=== PATIENT | female | born 1950 | race Caucasian/White ===

== ENCOUNTER 2017-02-26 14:34 | Emergency (ER) | payer OTHER, MEDICARE, SELFPAY | END 2017-02-26 16:41 | disposition home or self-care (01) | PROVIDERS: Emergency Provider Emergency Medicine; Visit Provider Emergency Medicine | DX: R21 Rash and other nonspecific skin eruption (principal); F17.210 Nicotine dependence, cigarettes, uncomplicated; Z88.5 Allergy status to narcotic agent | CPT/HCPCS: 96372; 99282 ==

== ENCOUNTER 2021-09-05 08:53 | Inpatient (IN) | payer MEDICARE, OTHER, SELFPAY ==
[2021-09-05] VITALS (40 sets, daily range): BP systolic 94–145; BP diastolic 44–76; PULSE 79–98; RESP 14–22; TEMP 35.6–37.1; O2SAT 95–100; BMI 24.7; BMI 27.3
--- NOTE | 2021-09-05 09:09 | XR_ITS ---
PROCEDURE INFORMATION: Exam: XR Chest Exam date and time: 09/05/2021 9:18 AM Age: 71 years old Clinical indication: Shortness of breath TECHNIQUE: Imaging protocol: Radiologic exam of the chest. Views: 1 view. COMPARISON: No relevant prior studies available. FINDINGS: Lungs: Unremarkable. No consolidation. Pleural spaces: No pneumothorax. Heart/Mediastinum: Unremarkable. No cardiomegaly. Bones/joints: Surgical screw, left scapula/glenoid. Other findings: The patient is rotated to the right. IMPRESSION: No acute process.
--- NOTE | 2021-09-05 09:09 | HMH.EDSOB ---
ED Disposition Clinical Impression: Anemia Qualifiers: Anemia type: unspecified type Qualified Code(s): D64.9 - Anemia, unspecified Disposition: Admitted as Observation Condition on Discharge: Serious - Critical Care Critical Care Time: Yes Attestation: On , the high probability of a clinically significant, sudden or life threatening deterioration of the following system(s) required my full and direct attention, intervention and personal management. The time I documented below is in addition to time spent performing reported procedures but includes the following listed in this critical care notation. Total Critical Care Time: 35 (Severe Anemia requiring blood transfusion) Vital system(s) involved:: Circulatory Failure My critical care processes included: Assessment & monitoring of V/S, Data Review/Interpretation, Medication Orders and management, Documentation Medical Decision Making - Medical Records Medical records reviewed: Yes: I reviewed the patient's medical records. - Alex Inquiry Pt receiving controlled substance: No Vital Signs: 09/05/21 09:11 09/05/21 09:56 Temperature 97.6 F Temperature Source Oral Pulse Rate 89 Pulse Rate [Left Radial] 93 H Respiratory Rate 16 22 Blood Pressure 116/57 L Blood Pressure [Right Arm] 116/51 L Blood Pressure Mean [Right Arm] 72 02 Sat by Pulse Oximetry 100 100 Oxygen Delivery Method Room Air - Lab Data Lab results reviewed: Yes: I reviewed the patient's lab results. Lab Results 09/05/21 09:15: WBC 8.3, RBC 4.15 L, Hgb 5.8 L*, Hct 22.4 L, MCV 53.9 L, MCH 13.9 L*, MCHC 25.7 L, RDW 20.7 H, Plt Count 739 H, MPV 7.6, Neut % (Auto) 73.8, Lymph % (Auto) 18.9, [place] % (Auto) 4.8, Eos % (Auto) 1.3, Baso % (Auto) 1.2, Neut # (Auto) 6.1, Lymph # (Auto) 1.6, [place] # (Auto) 0.4, Eos # (Auto) 0.1, Baso # (Auto) 0.1 09/05/21 09:15: Sodium 138, Potassium 3.2 L, Chloride 112 H, Carbon Dioxide 11 L, Anion Gap 18.2 H, BUN 16, Creatinine 0.90, Estimated Creat Clear 60, Estimated GFR 62, Est GFR ( Amer) 75, Glucose 135 H, Calcium 8.8, Total Bilirubin 0.4, AST 36, ALT 16, Alkaline Phosphatase 116, Total Protein 7.6, Albumin 3.9, Globulin 3.7 H, Albumin/Globulin Ratio 1.1 09/05/21 09:15: Lactate 1.1 09/05/21 09:15: Troponin I < 0.01, NT-Pro-B Natriuret Pep 852 H 09/05/21 09:15: Retic Count (auto) 2.6 09/05/21 09:15: PT 16.8 H, INR 1.53 H, APTT 35.1 H 09/05/21 09:18: SARS-CoV-2 (PCR) Not detected, Influenza A Untype (PCR) Not detected, Influenza Type B (PCR) Not detected 09/05/21 09:21: Specimen Source Right radial, O2 % ra, ABG pH 7.54 H, ABG pCO2 16.5 L, ABG pO2 115.7 H, ABG HCO3 13.9 L, ABG Total CO2 14.4 L, ABG O2 Saturation 99, ABG Base Excess -8.6 L, Ham[place] Test Acceptable 09/05/21 09:50: Stool Occult Blood Negative 09/05/21 09:54: Crossmatch ([facility]) See Detail Result diagrams: 09/05/21 09:15 09/05/21 09:15 Orders (Tests/Meds): ED MEDICATIONS Generic Name Dose Route Start Last Admin Trade Name Freq PRN Reason Stop Dose Admin Sodium Chloride 250 mls @ 25 mls/hr 09/05/21 10:15 Sod Chlor 0.9% 250ml Bag IV 09/06/21 10:14 .Q10H ANGEL LUIS Sodium Chloride 10 ml 09/05/21 09:20 Sodium Chloride 0.9% 10ml Flush Syringe IV 10/05/21 09:19 NEEDED PRN Maintain IV Site Sodium Chloride 10 ml 09/05/21 09:37 Sodium Chloride 0.9% 10ml Vial IV 10/05/21 09:36 NEEDED PRN to Dilute Lorazepam inj Discontinued Medications Generic Name Dose Route Start Last Admin Trade Name Freq PRN Reason Stop Dose Admin Lorazepam 1 mg 09/05/21 09:37 09/05/21 09:42 Lorazepam 2mg/Ml Vial IV 09/05/21 09:38 1 mg ONCE ONE Administration ORDERS Category Date Time Status Red Blood Cells Stat BBK 09/05/21 09:54 Received Type and Screen Stat BBK 09/05/21 09:54 Received Ferritin Stat Lab 09/05/21 09:15 Received Folate Stat Lab 09/05/21 09:15 Received Iron Stat Lab 09/05/21 09:15 Received Total Iron Binding Capacity Stat Lab 09/05/21
--- NOTE | 2021-09-05 09:10 | PC.NURSE ---
at the bedside
--- NOTE | 2021-09-05 09:12 | ECG_ITS ---
APPROVED REPORT Exam: Resting ECG HR:90 bpm ECG Measurements Heart Rate 90 AXES OH 153 P 50 QRSd 113 QRS 5 QT 383 T 83 QTc 430 Conclusion SINUS RHYTHM POSSIBLE LEFT ATRIAL ENLARGEMENT [-0.1mV P-WAVE IN V1/V2] ANTEROSEPTAL MYOCARDIAL INFARCTION , OF INDETERMINATE AGE [40+ ms Q WAVE IN V1-V4] ABNORMAL ECG UNCONFIRMED REPORT Electronically signed by : Rodney Randall MD 09/06/2021 21:47:11
--- NOTE | 2021-09-05 09:18 | PC.NURSE ---
called RT for abg collection
--- NOTE | 2021-09-05 09:18 | PC.NURSE ---
staff at the bedside for blood collection
--- NOTE | 2021-09-05 09:18 | PC.NURSE ---
at the bedside
[2021-09-05 09:21] LABS: Coronavirus 19, PCR Not Detected (NotDetected); Influenza A, PCR Not Detected (NotDetected); Influenza B, PCR Not Detected (NotDetected)
--- NOTE | 2021-09-05 09:21 | PC.NURSE ---
radiology at the bedside for portable xr
--- NOTE | 2021-09-05 09:21 | PC.NURSE ---
RT at the bedside for abg collection
[2021-09-05 09:31] LABS: ABG Base Excess -8.6 mmol/L (-2.4-2.3); ABG HCO3 13.9 mmhg (22.0-26.0); ABG Oxygen Saturation 99 % (90-100); ABG PH 7.54 mmol/L (7.35-7.45); ABG PO2 115.7 mmhg (80-100); ABG TCO2 14.4 mmhg (23-27)
[2021-09-05 09:34] LABS: Allen's Test Acceptable; Oxygen ra %; Source Right Radial
[2021-09-05 09:35] LABS: ABG PCO2 16.5 mmhg (35.0-45.0)
--- NOTE | 2021-09-05 09:36 | PC.NURSE ---
aware of VBG
[2021-09-05 09:37] LABS: Basophils # 0.1 K/mm3 (0-0.2); Basophils % 1.2 % (0.1-2.0); Eosinophils # 0.1 K/mm3 (0.0-0.4); Eosinophils % 1.3 % (0.1-12.0); Hematocrit 22.4 % (37.0-47.0); Lymphocytes # 1.6 K/mm3 (0.7-4.5); Lymphocytes % 18.9 % (10-50); Mean Corpuscular HGB Conc 25.7 g/dL (31.8-35.4); Mean Corpuscular Volume 53.9 fl (81-99); Mean Platelet Volume 7.6 fl (7.4-10.4); Monocytes # 0.4 K/mm3 (0.1-1.0); Monocytes % 4.8 % (1.7-9.3); Neutrophils # 6.1 K/mm3 (1.8-7.8); Neutrophils % 73.8 % (37.0-80.0); Platelet Count 739 K/mm3 (142-424); Red Blood Count 4.15 M/mm3 (4.20-5.40); Red Cell Distribution Width 20.7 % (11.5-17.5); White Blood Count 8.3 K/mm3 (4.8-10.8)
[2021-09-05 09:38] LABS: Chloride 112 mmol/L (98-107); Mean Corpuscular Hemoglobin 13.9 pg (27.0-31.2)
[2021-09-05 09:39] LABS: Hemoglobin 5.8 g/dL (12.2-16.2); Potassium 3.2 mmoL/L (3.5-5.1); Sodium 138 mmol/L (136-145)
--- NOTE | 2021-09-05 09:40 | PC.NURSE ---
MD aware of hemoglobin
[2021-09-05 09:41] LABS: Alanine Aminotransferase 16 U/L (12-78); Aspartate Amino Transferase 36 U/L (14-36); Blood Urea Nitrogen 16 mg/dl (7-17); Creatinine Clearance Estimated 60 mL/min (50-200); Estimated Glomerular Filt Rate 62 ml/min (>60); GFR (African American) 75 ML/MIN (>60); Lactic Acid 1.1 mmol/L (0.7-2.1)
[2021-09-05 09:42] LABS: Albumin Level 3.9 g/dl (3.5-5.0); Albumin/Globulin Ratio 1.1 (1.1-1.8); Alkaline Phosphatase 116 U/L (38-126); Anion Gap 18.2 mEq/L (5-15); Bilirubin,Total 0.4 mg/dl (0.2-1.3); Calcium 8.8 mg/dl (8.4-10.2); Carbon Dioxide 11 mmol/L (22.0-30.0); Globulin 3.7 g/dL (1.3-3.2); Glucose 135 mg/dl (74-100); Total Protein,Serum 7.6 g/dl (6.3-8.2)
[2021-09-05 09:51] LABS: NT Pro Brain Natriuretic Pep. 852 pg/mL (0-125)
--- NOTE | 2021-09-05 09:54 | PC.NURSE ---
lab at the bedside for collection
[2021-09-05 09:55] LABS: Troponin I < 0.01 ng/ml (0.00-0.034)
[2021-09-05 09:56] LABS: Occult Blood,Stool Negative (Negative)
--- NOTE | 2021-09-05 10:16 | PC.NURSE ---
speaking to dr ha for admission orders
--- NOTE | 2021-09-05 10:21 | PC.NURSE ---
anemia panel orders placed per dr ha request
[2021-09-05 10:31] LABS: Reticulocyte % (Auto) 2.6 % (0.9-3.2)
[2021-09-05 10:41] LABS: Activated Partial Thrombo Time 35.1 seconds (22.8-30.6); INR 1.53 (0.9-1.1); Prothrombin Time 16.8 seconds (10.1-12.5)
[2021-09-05 10:43] LABS: Iron 13 ug/dL (37-170)
[2021-09-05 10:45] LABS: Total Iron Binding Capacity 411 ug/dL (265-497)
--- NOTE | 2021-09-05 10:47 | PC.NURSE ---
report called to Perla FRANCO
[2021-09-05 11:13] LABS: Ferritin 3.45 ng/ml (11.1-264)
--- NOTE | 2021-09-05 11:23 | PC.NURSE ---
med maxillofacial surgeon to ed to transport pt
[2021-09-05 11:43] LABS: Vitamin B12 256 pg/mL (239-931)
--- NOTE | 2021-09-05 11:59 | P.CONPHA_ITS ---
[facility] Pharmacy VTE Monitoring - Patient Demographics Admission date: 09/05/21 Report Date: 09/05/21 Time: 12:00 Allergies/Adverse Reactions: Patient Allergies morphine [MORPHINE] Allergy (Mild, Verified 09/05/21 10:15) Height: 1.65 m Weight: 74.389 kg Patient Problems: Current Active Problems Anemia (Acute) - VTE Risk Labs: VTE Related Lab Results Hgb 5.8 g/dL (12.2-16.2) L* 09/05/21 09:15 Hct 22.4 % (37.0-47.0) L 09/05/21 09:15 Plt Count 739 K/mm3 (142-424) H 09/05/21 09:15 PT 16.8 seconds (10.1-12.5) H 09/05/21 09:15 INR 1.53 (0.9-1.1) H 09/05/21 09:15 APTT 35.1 seconds (22.8-30.6) H 09/05/21 09:15 BUN 16 mg/dl (7-17) 09/05/21 09:15 Creatinine 0.90 mg/dl (0.52-1.04) 09/05/21 09:15 Estimated Creat Clear 60 mL/min (50-200) 09/05/21 09:15 Clinical Trial Participant: No - Prophylaxis VTE Prophylaxis Ordered?: Yes Types of VTE Prophylaxis: TEDS Knee High
--- NOTE | 2021-09-05 12:47 | PC.NURSE ---
pt admitted to the floor blood is infusing. I notified MD of pt slurred speech and poor coordination. Family @ bedside says this is not her baseline. MD in to assess pt @ this time.
[2021-09-05 13:10] LABS: Troponin I < 0.01 ng/ml (0.00-0.034)
--- NOTE | 2021-09-05 13:14 | HMH.HP ---
*Admission Date: 09/05/21 *Chief complaint: anemia *History of present illness: Patient is a 71-year-old white female who enjoys general good health, scented to the emergency room this morning with a history of dyspnea which has been progressing for the last 4 days. Her work-up included EKG and troponin which were unremarkable, but labs did reveal significant degree of anemia hemoglobin of 5.8. Her MCV was diminished at 53.9. Had been having some diarrhea, was taking Pepto-Bismol. Stools have been discolored she was heme-negative in the emergency room. She denies hematemesis or melanotic stool. There are no overt signs of gastrointestinal blood loss. Patient was given Ativan in the emergency room prior to coming to the floor. She is still a little groggy. Blood is hanging, typed and crossed for 2 units. S/P hysterectomy [facility] History Medical History: Reports:: Hypertension Denies:: Cancer, Diabetes Mellitus Type 1, Diabetes Mellitus Type 2, MRSA *Have you ever received a pneumonia vaccine?: No *Have you received a flu vaccine this season?: No Other Surgeries: Yes: Hysterectomy-Total Amputation: No - *Social History Last grade of school completed: GED Smoking Status: Former smoker Tobacco Type: cigarettes Alcohol Intake: never *Occupational Status:: retired Household Members: spouse *Travel in the last 8 weeks: None Family Hx:: No significant family history Review of Systems - Constitutional Reports fatigue, Reports lack of energy, Reports malaise, Reports weakness - Eyes Reports change in vision - ENT Denies abnormal hearing - *Cardiovascular Reports shortness of breath with activity - *Respiratory Reports shortness of breath, Denies coughing up blood - *Gastrointestinal Reports change in stools, Denies abdominal pain, Denies bloating, Denies coffee ground vomit, Denies incontinent of stools, Denies vomiting blood, Denies bright, red blood in stools, Denies black, tarry stools - *Genitourinary Denies painful urination - *Musculoskeletal Reports muscle weakness - Integumentary/Breasts Denies yellowing of the skin - *Neurologic Reports weakness - Psychiatric Reports anxiety - Endocrine Denies rapid, pounding, or irregular heartbeat - Hematologic/Lymphatic Denies easy bleeding, Denies easy bruising - Allergic/Immunologic Denies hives Meds Home Medications Medication Instructions Recorded Confirmed Type lisinopriL [Lisinopril] 10 mg PO DAILY 09/05/21 09/05/21 History Allergies Allergy/AdvReac Type Severity Reaction Status Date / Time morphine [MORPHINE] Allergy Mild Verified 09/05/21 10:15 Exam Vital signs and Labs for Last 24 Hours: Temp Pulse Resp BP Pulse Ox 96.1 F L 88 22 122/53 L 100 09/05/21 11:45 09/05/21 11:45 09/05/21 11:45 09/05/21 11:45 09/05/21 11:38 Laboratory Results - last 24 hr 09/05/21 09:15: WBC 8.3, RBC 4.15 L, Hgb 5.8 L*, Hct 22.4 L, MCV 53.9 L, MCH 13.9 L*, MCHC 25.7 L, RDW 20.7 H, Plt Count 739 H, MPV 7.6, Neut % (Auto) 73.8, Lymph % (Auto) 18.9, [place] % (Auto) 4.8, Eos % (Auto) 1.3, Baso % (Auto) 1.2, Neut # (Auto) 6.1, Lymph # (Auto) 1.6, [place] # (Auto) 0.4, Eos # (Auto) 0.1, Baso # (Auto) 0.1 09/05/21 09:15: Sodium 138, Potassium 3.2 L, Chloride 112 H, Carbon Dioxide 11 L, Anion Gap 18.2 H, BUN 16, Creatinine 0.90, Estimated Creat Clear 60, Estimated GFR 62, Est GFR ( Amer) 75, Glucose 135 H, Calcium 8.8, Total Bilirubin 0.4, AST 36, ALT 16, Alkaline Phosphatase 116, Total Protein 7.6, Albumin 3.9, Globulin 3.7 H, Albumin/Globulin Ratio 1.1 09/05/21 09:15: Lactate 1.1 09/05/21 09:15: Troponin I < 0.01, NT-Pro-B Natriuret Pep 852 H 09/05/21 09:15: Iron 13 L 09/05/21 09:15: TIBC 411 09/05/21 09:15: Ferritin 3.45 L 09/05/21 09:15: Retic Count (auto) 2.6 09/05/21 09:15: Vitamin B12 256, Folate 17.10 09/05/21 09:15: PT 16.8 H, INR 1.53 H, APTT 35.1 H 09/05/21 09:15: Blood Type Confirm O Positive 09/05/21 09:18: SARS-CoV-2 (PCR) N
--- NOTE | 2021-09-05 14:13 | PC.NURSE ---
[address] Velasco, plan is for pt to have EGD in the am. pt is to be npo after midnight, but may have clear liquids until midnight. (no red dye).
--- NOTE | 2021-09-05 14:17 | HMH.GSCON ---
*Admission Date: 09/05/21 *Reason for consult:: Anemia *History of present illness: This is a 71-year-old female seen in consultation from Dr. Raymundo for evaluation regarding anemia. She presents the emergency department with increasing shortness of air. She was diagnosed with anemia and admitted to the primary care service. The surgical service was consulted for possible endoscopic evaluation. Please see HPI forwarded from admission H&P below. Forwarded from admission H&P: Patient is a 71-year-old white female who enjoys general good health, scented to the emergency room this morning with a history of dyspnea which has been progressing for the last 4 days. Her work-up included EKG and troponin which were unremarkable, but labs did reveal significant degree of anemia hemoglobin of 5.8. Her MCV was diminished at 53.9. Had been having some diarrhea, was taking Pepto-Bismol. Stools have been discolored she was heme-negative in the emergency room. She denies hematemesis or melanotic stool. There are no overt signs of gastrointestinal blood loss. Review of Systems - Constitutional Denies chills - *Cardiovascular Denies chest pain - *Gastrointestinal Denies abdominal pain, Denies vomiting blood, Denies bright, red blood in stools, Denies black, tarry stools - *Neurologic Reports weakness, Denies abnormal hearing [facility] History Medical History: Reports:: Hypertension Denies:: Cancer, Diabetes Mellitus Type 1, Diabetes Mellitus Type 2, MRSA *Have you ever received a pneumonia vaccine?: No *Have you received a flu vaccine this season?: No Other Surgeries: Yes: Hysterectomy-Total Amputation: No - *Social History Last grade of school completed: GED Smoking Status: Former smoker Tobacco Type: cigarettes Alcohol Intake: never *Occupational Status:: retired Household Members: spouse *Travel in the last 8 weeks: None Family Hx:: No significant family history Meds Home Medications Medication Instructions Recorded Confirmed Type lisinopriL [Lisinopril] 10 mg PO DAILY 09/05/21 09/05/21 History Allergies Allergy/AdvReac Type Severity Reaction Status Date / Time morphine [MORPHINE] Allergy Mild Verified 09/05/21 10:15 Exam Vital signs and Labs for Last 24 Hours: Temp Pulse Resp BP Pulse Ox 97.9 F 86 22 104/50 L 100 09/05/21 13:50 09/05/21 13:50 09/05/21 11:45 09/05/21 13:50 09/05/21 11:38 Laboratory Results - last 24 hr 09/05/21 09:15: WBC 8.3, RBC 4.15 L, Hgb 5.8 L*, Hct 22.4 L, MCV 53.9 L, MCH 13.9 L*, MCHC 25.7 L, RDW 20.7 H, Plt Count 739 H, MPV 7.6, Neut % (Auto) 73.8, Lymph % (Auto) 18.9, [place] % (Auto) 4.8, Eos % (Auto) 1.3, Baso % (Auto) 1.2, Neut # (Auto) 6.1, Lymph # (Auto) 1.6, [place] # (Auto) 0.4, Eos # (Auto) 0.1, Baso # (Auto) 0.1 09/05/21 09:15: Sodium 138, Potassium 3.2 L, Chloride 112 H, Carbon Dioxide 11 L, Anion Gap 18.2 H, BUN 16, Creatinine 0.90, Estimated Creat Clear 60, Estimated GFR 62, Est GFR ( Amer) 75, Glucose 135 H, Calcium 8.8, Total Bilirubin 0.4, AST 36, ALT 16, Alkaline Phosphatase 116, Total Protein 7.6, Albumin 3.9, Globulin 3.7 H, Albumin/Globulin Ratio 1.1 09/05/21 09:15: Lactate 1.1 09/05/21 09:15: Troponin I < 0.01, NT-Pro-B Natriuret Pep 852 H 09/05/21 09:15: Iron 13 L 09/05/21 09:15: TIBC 411 09/05/21 09:15: Ferritin 3.45 L 09/05/21 09:15: Retic Count (auto) 2.6 09/05/21 09:15: Vitamin B12 256, Folate 17.10 09/05/21 09:15: PT 16.8 H, INR 1.53 H, APTT 35.1 H 09/05/21 09:15: Blood Type Confirm O Positive 09/05/21 09:18: SARS-CoV-2 (PCR) Not detected, Influenza A Untype (PCR) Not detected, Influenza Type B (PCR) Not detected 09/05/21 09:21: Specimen Source Right radial, O2 % ra, ABG pH 7.54 H, ABG pCO2 16.5 L, ABG pO2 115.7 H, ABG HCO3 13.9 L, ABG Total CO2 14.4 L, ABG O2 Saturation 99, ABG Base Excess -8.6 L, Hamlet Test Acceptable 09/05/21 09:50: Stool Occult Blo
[2021-09-05 15:52] LABS: Troponin I < 0.01 ng/ml (0.00-0.034)
--- NOTE | 2021-09-05 16:16 | PC.NURSE ---
transfusion complete. pt tolerated well. pt continues to need 2lnc and is soa. family @ bedside. will get 1 hr post
[2021-09-05 17:40] LABS: Hematocrit 25.7 % (37.0-47.0)
[2021-09-05 17:58] LABS: Hemoglobin 7.8 g/dL (12.2-16.2)
--- NOTE | 2021-09-05 18:13 | PC.NURSE ---
pagemary urias for post transfusion results
--- NOTE | 2021-09-05 18:28 | CT_ITS ---
PROCEDURE INFORMATION: Exam: CTA Head Without And With Contrast, Arteriography Exam date and time: 09/05/2021 6:38 PM Age: 71 years old Clinical indication: Stroke-like symptoms; Altered mental status/memory loss; Additional info: Confusion TECHNIQUE: Imaging protocol: Computed tomographic angiography of the head without and with contrast. Exam focused on the arteries. 3D rendering (Not supervised by radiologist): MIP and/or 3D reconstructed images were created by the technologist. Radiation optimization: All CT scans at this facility use at least one of these dose optimization techniques: automated exposure control; mA and/or kV adjustment per patient size (includes targeted exams where dose is matched to clinical indication); or iterative reconstruction. Other technique: STROKE PROTOCOL was implemented. COMPARISON: No relevant prior studies available. FINDINGS: ANTERIOR CIRCULATION: Right internal carotid artery: Intracranial segment is patent with no significant stenosis or occlusion. No aneurysm. Right middle cerebral artery: No occlusion or significant stenosis. No aneurysm. Right anterior cerebral artery: Hypoplastic right A1 segment. Left internal carotid artery: Mild calcification involving the left carotid siphon without significant stenosis. Left middle cerebral artery: No occlusion or significant stenosis. No aneurysm. Left anterior cerebral artery: No occlusion or significant stenosis. No aneurysm. 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 Left vertebral artery: Left vertebral artery is dominant. Basilar artery: No occlusion or significant stenosis. No aneurysm. Right posterior cerebral artery: See Right posterior communicating artery finding. Left posterior cerebral artery: No occlusion or significant stenosis. No aneurysm. Right posterior communicating artery: Patent right posterior communicating artery with hypoplastic right P1 segment. HEAD: Brain: No acute intracranial hemorrhage, midline shift or intracranial mass effect. No evidence of cerebral edema. Prominent perivascular spaces versus chronic lacunar infarcts at the lentiform nuclei. Cerebral ventricles: No hydrocephalus. Bones/joints: Hyperostosis frontalis interna. No acute calvarial fracture. Paranasal sinuses: Minimal paranasal sinus disease. Mastoid air cells: Visualized mastoids are normal. No mastoid effusion. Soft tissues: Unremarkable. IMPRESSION: No hemodynamically significant stenosis or large vessel occlusion. ASSESSMENT: ASPECTS ([place] Stroke Program Early CT Score) is 10.
--- NOTE | 2021-09-05 18:29 | PC.NURSE ---
spoke to MD regarding pt confusion, SOA and slurred speech. Stat CT, 1unit prbc, and iv lasix ordered
--- NOTE | 2021-09-05 18:40 | PC.NURSE ---
pt continues to be confused. gait is unsteady and she is disoriented.
--- NOTE | 2021-09-05 18:51 | PC.NURSE ---
give lasix after 3rd prbc infusoin
[2021-09-06] VITALS (21 sets, daily range): BP systolic 103–128; BP diastolic 45–74; PULSE 70–86; RESP 14–20; TEMP 36.4–37.1; O2SAT 97–100
[2021-09-06 01:19] LABS: Hematocrit 30.8 % (37.0-47.0)
[2021-09-06 01:21] LABS: Hemoglobin 9.2 g/dL (12.2-16.2)
--- NOTE | 2021-09-06 06:41 | PC.NURSE ---
Pt receioved 1 unit of blood this shift. tolerated well. Pt has not voiced any complaints to staff. Pt is a+o x4 but has moments of confusion and continues to have slurred speech and poor coordination. is at bedside. Call light within reach
--- NOTE | 2021-09-06 06:42 | PC.NURSE ---
Pt left floor with OR staff at this time.
[2021-09-06 06:50] LABS: Basophils # 0.1 K/mm3 (0-0.2); Eosinophils # 0.2 K/mm3 (0.0-0.4); Hematocrit 30.3 % (37.0-47.0); Lymphocytes # 2.3 K/mm3 (0.7-4.5); Lymphocytes % 27.1 % (10-50); Mean Corpuscular HGB Conc 29.6 g/dL (31.8-35.4); Mean Corpuscular Hemoglobin 19.2 pg (27.0-31.2); Mean Platelet Volume 8.1 fl (7.4-10.4); Monocytes # 0.7 K/mm3 (0.1-1.0); Monocytes % 7.7 % (1.7-9.3); Neutrophils # 5.4 K/mm3 (1.8-7.8); Neutrophils % 62.2 % (37.0-80.0); Platelet Count 551 K/mm3 (142-424); Red Blood Count 4.67 M/mm3 (4.20-5.40); White Blood Count 8.6 K/mm3 (4.8-10.8)
[2021-09-06 06:52] LABS: Red Cell Distribution Width 30.6 % (11.5-17.5)
--- NOTE | 2021-09-06 06:52 | HMH.GSPN ---
Subjective Patient reports: feels better (She states that she feels a little stronger after a 3 unit packed red blood cell transfusion.) Progress Note: A&P (1) Anemia Status: Acute Assessment and plan: Very good response to blood transfusion. Esophagogastroduodenoscopy this morning Exam Vital signs and Labs for Last 24 Hours: Temp Pulse Resp BP Pulse Ox 98.6 F 77 19 103/59 L 99 09/06/21 04:00 09/06/21 04:00 09/06/21 04:00 09/06/21 04:00 09/06/21 04:00 Laboratory Results - last 24 hr 09/05/21 09:15: WBC 8.3, RBC 4.15 L, Hgb 5.8 L*, Hct 22.4 L, MCV 53.9 L, MCH 13.9 L*, MCHC 25.7 L, RDW 20.7 H, Plt Count 739 H, MPV 7.6, Neut % (Auto) 73.8, Lymph % (Auto) 18.9, [place] % (Auto) 4.8, Eos % (Auto) 1.3, Baso % (Auto) 1.2, Neut # (Auto) 6.1, Lymph # (Auto) 1.6, [place] # (Auto) 0.4, Eos # (Auto) 0.1, Baso # (Auto) 0.1 09/05/21 09:15: Sodium 138, Potassium 3.2 L, Chloride 112 H, Carbon Dioxide 11 L, Anion Gap 18.2 H, BUN 16, Creatinine 0.90, Estimated Creat Clear 60, Estimated GFR 62, Est GFR ( Amer) 75, Glucose 135 H, Calcium 8.8, Total Bilirubin 0.4, AST 36, ALT 16, Alkaline Phosphatase 116, Total Protein 7.6, Albumin 3.9, Globulin 3.7 H, Albumin/Globulin Ratio 1.1 09/05/21 09:15: Lactate 1.1 09/05/21 09:15: Troponin I < 0.01, NT-Pro-B Natriuret Pep 852 H 09/05/21 09:15: Iron 13 L 09/05/21 09:15: TIBC 411 09/05/21 09:15: Ferritin 3.45 L 09/05/21 09:15: Retic Count (auto) 2.6 09/05/21 09:15: Vitamin B12 256, Folate 17.10 09/05/21 09:15: PT 16.8 H, INR 1.53 H, APTT 35.1 H 09/05/21 09:15: Blood Type Confirm O Positive 09/05/21 09:18: SARS-CoV-2 (PCR) Not detected, Influenza A Untype (PCR) Not detected, Influenza Type B (PCR) Not detected 09/05/21 09:21: Specimen Source Right radial, O2 % ra, ABG pH 7.54 H, ABG pCO2 16.5 L, ABG pO2 115.7 H, ABG HCO3 13.9 L, ABG Total CO2 14.4 L, ABG O2 Saturation 99, ABG Base Excess -8.6 L, [place] Test Acceptable 09/05/21 09:50: Stool Occult Blood Negative 09/05/21 09:54: Blood Type O Positive, Antibody Screen Negative, Crossmatch ([facility]) See Detail 09/05/21 12:30: Troponin I < 0.01 09/05/21 15:10: Troponin I < 0.01 09/05/21 17:15: Hgb 7.8 L D, Hct 25.7 L 09/06/21 01:05: Hgb 9.2 L D, Hct 30.8 L I & O for Last 24 hours: Intake & Output 09/03/21 09/04/21 09/05/21 09/06/21 11:59 11:59 11:59 11:59 Intake Total 0 / 0 745 / 745 Balance 0 / 0 745 / 745 Weight 164 lb - Constitutional no acute distress - *Routine Respiratory Exam Absent: respiratory distress - *Routine Cardiovascular Exam Absent: tachycardia - *Routine Abdominal Exam Present: soft
[2021-09-06 06:56] LABS: Chloride 116 mmol/L (98-107); Sodium 140 mmol/L (136-145)
[2021-09-06 06:57] LABS: Potassium 3.1 mmoL/L (3.5-5.1)
[2021-09-06 06:59] LABS: Alanine Aminotransferase 15 U/L (12-78); Albumin Level 3.4 g/dl (3.5-5.0); Alkaline Phosphatase 96 U/L (38-126); Anion Gap 13.1 mEq/L (5-15); Aspartate Amino Transferase 41 U/L (14-36); Bilirubin,Total 0.4 mg/dl (0.2-1.3); Blood Urea Nitrogen 14 mg/dl (7-17); Carbon Dioxide 14 mmol/L (22.0-30.0); Creatinine Clearance Estimated 62 mL/min (50-200); Estimated Glomerular Filt Rate 71 ml/min (>60); GFR (African American) 86 ML/MIN (>60); Globulin 3.3 g/dL (1.3-3.2); Total Protein,Serum 6.7 g/dl (6.3-8.2)
[2021-09-06 07:00] LABS: Calcium 8.3 mg/dl (8.4-10.2); Glucose 94 mg/dl (74-100)
--- NOTE | 2021-09-06 07:40 | HMH.SCOPE ---
- Procedure: Date: 09/06/21 Patient Date of :: 1950 Procedure Performed:: Esophagogastroduodenoscopy with biopsy Indications:: Anemia Performing Provider:: Delta Velasco MD Referring Provider:: Drs. Mg and Zackary Sedation:: Monitored anesthesia care Procedure:: After informed consent was obtained the patient was taken to the endoscopy suite. Sedation ensued after the patient was transferred to the left lateral decubitus position. Pulse, blood pressure, and oxygen saturation were monitored throughout the procedure. The endoscope was advanced beyond the duodenal bulb. Retroflexion within the gastric lumen was accomplished. The gastroscope was carefully removed and the patient was transferred to recovery in stable condition. Please see findings and specimens below for detail. Findings:: Sliding hiatal hernia Inflammatory changes in the region of the gastroesophageal junction Patchy gastritis Increased inflammatory changes consistent with likely healed ulcer in the prepyloric region No sign of recent or active hemorrhage Specimens:: Biopsy of prepyloric healed ulcer Gastroesophageal junction biopsy Recommendations:: Continue proton pump inhibition Follow-up pathology Complications:: No immediate Estimated blood obtained (mL): 1
--- NOTE | 2021-09-06 08:30 | HMH.ANESCL ---
[facility] Anesthesia Checklist - Patient Identification Patient Identification: Arm Band, Verbal (Name & ) - Structural Data Admitted From: Inpatient Planned Operative Procedure/s: EGD Consent for Planned Operative Procedure(s) Verified: Yes Verified Documents: Surgical Consent - NPO Status Verified Time NPO: 00:00 - Airway Assessment C-Spine Mobility Assessed: Yes TMJ Mobility Assessed: Yes Dentition: Good Dentition - Neurological Assessment Level of Consciousness: Awake, Alert, Appropriate - Anesthesia Plan ASA Class: III Anesthesia Type: MAC [facility] History I have reviewed the patient's past medical history: Yes Medical History: Reports:: Hypertension Denies:: Cancer, Diabetes Mellitus Type 1, Diabetes Mellitus Type 2, MRSA *Have you ever received a pneumonia vaccine?: No *Have you received a flu vaccine this season?: No Anesthesia experience/problems:: none Other Surgeries: Yes: Hysterectomy-Total Amputation: No - *Social History Last grade of school completed: GED Smoking Status: Former smoker Tobacco Type: cigarettes Alcohol Intake: never Substance Use Type: denies use *Occupational Status:: retired Household Members: spouse *Travel in the last 8 weeks: None Family Hx:: No significant family history
--- NOTE | 2021-09-06 08:36 | HMH.PHAINT ---
MEDICATION RECONCILIATION COMPLETED ON PATIENT VIA PATIENT INTERVIEW. -[facility], [facility]
--- NOTE | 2021-09-06 09:11 | PC.NURSE ---
Per Kandice Ortiz in Case Management- MD Raymundo will be putting in a discharge for pt but does not want pt to leave until at least after lunch. MD wants pt to ambulate before leaving and to be more alert post-surgery. This was passed on to Aristides Sloan RN and Chantal Andujar RN.
--- NOTE | 2021-09-06 09:52 | HMH.DCSUM ---
General - General Admission date:: 09/05/21 Discharge date: 09/06/21 HPI HPI: Patient is a 71-year-old white female who enjoys general good health, scented to the emergency room this morning with a history of dyspnea which has been progressing for the last 4 days. Her work-up included EKG and troponin which were unremarkable, but labs did reveal significant degree of anemia hemoglobin of 5.8. Her MCV was diminished at 53.9. Had been having some diarrhea, was taking Pepto-Bismol. Stools have been discolored she was heme-negative in the emergency room. She denies hematemesis or melanotic stool. There are no overt signs of gastrointestinal blood loss. Patient was given Ativan in the emergency room prior to coming to the floor. She is still a little groggy. Blood is hanging, typed and crossed for 2 units. S/P hysterectomy Hospital Course Hospital Course: The patient was transfused a total of 3 units packed red cells and went from a hemoglobin of 5.8 to a hemoglobin of 9. Intake cbc was markedly abnormal with hemoglobin of 5.8, MCV of 54, and elevated platelets at 739. Coagulation studies done prior to EGD showed an INR of 1.53. She is not on warfarin or any other anticoagulant. She has no known history of liver disease. B12 and folate levels were normal. Her total iron was diminished at 13, ferritin was low at 3.45. TIBC was normal. Patient underwent EGD this morning. Findings are as follows Findings:: Sliding hiatal hernia Inflammatory changes in the region of the gastroesophageal junction Patchy gastritis Increased inflammatory changes consistent with likely healed ulcer in the prepyloric region No sign of recent or active hemorrhage Specimens:: Biopsy of prepyloric healed ulcer Gastroesophageal junction biopsy Recommendations:: Continue proton pump inhibition Follow-up pathology On the day of her discharge patient looked and felt substantially better than intake. We will make plans for outpatient hematology follow-up Objective Vital signs: Temp Pulse Resp BP Pulse Ox 97.8 F 81 18 105/49 L 98 09/06/21 07:35 09/06/21 07:55 09/06/21 07:55 09/06/21 07:55 09/06/21 07:55 no acute distress, average body habitus, cooperative - *Routine HEENT Exam Head: Present: normocephalic Eye: Present: EOMI, PERRL ENT: Present: mucous membranes moist - *Routine Neck Exam Present: supple - *Routine Respiratory Exam Present: CTA bilaterally - *Routine Cardiovascular Exam Present: RRR - *Routine Abdominal Exam Present: soft, normoactive bowel sounds. Absent: tenderness - *Routine Extremities Exam Absent: cyanosis, clubbing, edema - *Routine Skin Exam Present: warm. Absent: rash Results Labs on day of discharge: Labs from last 24 hours 09/06/21 09/06/21 09/06/21 06:36 06:36 01:05 WBC 8.6 RBC 4.67 Hgb 9.0 L 9.2 L D Hct 30.3 L 30.8 L MCV 65.0 L MCH 19.2 L D MCHC 29.6 L RDW 30.6 H* D Plt Count 551 H D MPV 8.1 Neut % (Auto) 62.2 Lymph % (Auto) 27.1 [place] % (Auto) 7.7 Eos % (Auto) 2.0 Baso % (Auto) 1.0 Neut # (Auto) 5.4 Lymph # (Auto) 2.3 [place] # (Auto) 0.7 Eos # (Auto) 0.2 Baso # (Auto) 0.1 Retic Count (auto) PT INR APTT Sodium 140 Potassium 3.1 L Chloride 116 H Carbon Dioxide 14 L Anion Gap 13.1 BUN 14 Creatinine 0.80 Estimated Creat Clear 62 Estimated GFR 71 Est GFR ( Amer) 86 Glucose 94 D Calcium 8.3 L Iron TIBC Ferritin Total Bilirubin 0.4 AST 41 H ALT 15 Alkaline Phosphatase 96 Troponin I NT-Pro-B Natriuret Pep Total Protein 6.7 Albumin 3.4 L D Globulin 3.3 H Albumin/Globulin Ratio 1.0 L Vitamin B12 Folate Stool Occult Blood Blood Type Blood Type Confirm Antibody Screen Crossmatch (AHG) 09/05/21 09/05/21 09/05/21 17:15 15:10 12:30 W
--- NOTE | 2021-09-06 10:59 | PC.NURSE ---
Pt's family concerned about pt discharging home today. MD Raymundo still on the floor and was notified. He will go and talk to pt's family regarding POC
--- NOTE | 2021-09-06 11:05 | CARE MANAGER ---
Patient has an appointment on 09.09.21 @ 2:30pm with Dr. Flores for heamtology.
--- NOTE | 2021-09-06 11:50 | MR_ITS ---
FINAL REPORT CLINICAL HISTORY: DECREASE MENTAL STATUS, confusion COMPARISON: 09/05/2021 FINDINGS: Multiplanar MR imaging of the brain was performed without contrast. Motion artifact is seen on many images. There is no evidence of intracranial hemorrhage or mass. The ventricular size is normal. There is no evidence of shift of the midline structures. No area of restricted diffusion is identified. The posterior fossa and brainstem have an unremarkable appearance. Normal major vessel vascular flow voids are seen. IMPRESSION: Unremarkable brain with no focal abnormality identified. Reviewed, Interpreted and Dictated by Dameon Silveira III, MD Transcribed by Sabine Gaitan Authenticated and . [facility]
--- NOTE | 2021-09-06 11:55 | HMH.OTEV ---
OT Inpatient Evaluation Rehab OT IP Evaluation Start: 09/06/21 10:58 Freq: ONCE Status: Complete Protocol: Document 09/06/21 11:39 ARCHANASHAW (Rec: 09/06/21 11:55 ARCHANASHAW [id number]) Rehab OT IP Assessment Subjective History Patient is a 71-year-old white female who enjoys general good health, scented to the emergency room this morning with a history of dyspnea which has been progressing for the last 4 days. Her work-up included EKG and troponin which were unremarkable, but labs did reveal significant degree of anemia hemoglobin of 5.8. Her MCV was diminished at 53.9. Had been having some diarrhea, was taking Pepto-Bismol. Stools have been discolored she was heme-negative in the emergency room. She denies hematemesis or melanotic stool . There are no overt signs of gastrointestinal blood loss. Patient was given Ativan in the emergency room prior to coming to the floor. She is still a little groggy. Blood is hanging, typed and crossed for 2 units. S/P hysterectomy [facility] History Medical History: Reports:: Hypertension Subjective I can get up. Instructed Patient on proper hand and foot placement to complete supine->sit @ EOB requiring Mod A. Instructed Patient on sit->stand transfers with usage of RW. Patient very unsteady during transfers with being unsafe to ambulate with RW. Patient demonstrated poor+ dynamic standing balance with having no AE/devices at home. Objective Patient Orientation Person,Name,Year Bed Mobility bed mobility - supine/sit Assist Level Moderate x 1 (50% assist) Rojo
--- NOTE | 2021-09-06 13:03 | SW/DCPLANNER ---
I spoke with this patient and her family regarding plans once medically stable for discharge. PT/OT evaluated this patient and recommended placement for this patient. Patient's was not present at time of my visit but family has requested that they speak with prior to making any decisions. is home at sleep due to being at hospital with patient all night. I did explain the importance of beginning placement process as soon as possible. Discharge date is unknown at this time.
[2021-09-06 14:17] LABS: Microscopic, Urine URINE MICROSCOPIC (MICROSCOPIC)
[2021-09-06 14:18] LABS: Appearance,Urine CLEAR (Clear); Bilirubin,Urine Negative (Negative); Blood, Urine Negative (Negative); Color,Urine YELLOW (Yellow); Glucose,Urine (UA) Negative (Negative); Ketones,Urine Negative (Negative); Leukocyte Esterase,Urine Negative (Negative); Nitrate,Urine Negative (Negative); PH,Urine 5.5 (5.0-8.5); Protein,Urine Negative (Negative); Specific Gravity, Urine 1.025 (1.005-1.030); Urobilinogen,Urine 0.2 EU/dl (0.2)
[2021-09-06 14:32] LABS: Bacteria,Urine Trace /lpf; Calcium Oxalate Crystals,Urine 2+ /lpf; Squamous Epithelial Cell,Urine Occasional #/hpf (0-5)
--- NOTE | 2021-09-06 15:43 | PC.NURSE ---
rounded on patient. family very concerned about confusion. educated that md was still running tests, and usually the md would round in the morning. did attempt to also start a new iv on patient with ultrasound, labs were drawn before it blew. family at this time refusing for her to be stuck again since lab had also attempted. no concerns with medications. family does feel like they aren't getting the answers they want in terms of why she had anemia and why she remains so confused. patient was also given a cup of broth. no complaints except some nausea after being poked stating she didn't like needles.
[2021-09-06 16:01] LABS: Ammonia < 9 umol/L (9-30)
--- NOTE | 2021-09-06 16:06 | PC.NURSE ---
spoke to dr pearl office and they okayed for Mrs Sarkar diet to be advanced to a regular diet @15:30
[2021-09-06 17:47] LABS: Basophils # 0.1 K/mm3 (0-0.2); Basophils % 1.3 % (0.1-2.0); Eosinophils # 0.2 K/mm3 (0.0-0.4); Eosinophils % 2.6 % (0.1-12.0); Hematocrit 31.3 % (37.0-47.0); Lymphocytes # 2.7 K/mm3 (0.7-4.5); Lymphocytes % 32.1 % (10-50); Mean Corpuscular HGB Conc 28.8 g/dL (31.8-35.4); Mean Corpuscular Hemoglobin 18.8 pg (27.0-31.2); Mean Corpuscular Volume 65.3 fl (81-99); Mean Platelet Volume 7.9 fl (7.4-10.4); Monocytes # 0.7 K/mm3 (0.1-1.0); Monocytes % 7.8 % (1.7-9.3); Neutrophils # 4.8 K/mm3 (1.8-7.8); Neutrophils % 56.1 % (37.0-80.0); Platelet Count 461 K/mm3 (142-424); Red Blood Count 4.79 M/mm3 (4.20-5.40); White Blood Count 8.5 K/mm3 (4.8-10.8)
[2021-09-06 17:49] LABS: Red Cell Distribution Width 30.7 % (11.5-17.5)
--- NOTE | 2021-09-06 19:23 | PC.NURSE ---
pt has been confused t/o shift, alert to self and at times birthday. assessment performed around 1500 and pt was alert X4 and X1 assist when ambulating. iv removed and per families request no peripheral iv placed. will continue to monitor.
[2021-09-07 04:00] VITALS: BP 116/52; PULSE 71; RESP 19; TEMP 36.8; O2SAT 100
[2021-09-07 04:10] VITALS: BMI 25.8
--- NOTE | 2021-09-07 04:50 | PC.NURSE ---
PT HAS RESTED WELL THIS SHIFT. NO ACUTE CHANGES FROM PREVIOUS ASSESSMENT. VITAL SIGNS STABLE CHARTED. GRANDDAUGHTER HAS REMAINED AT BEDSIDE THROUGHOUT SHIFT. WILL CONTINUE TO MONITOR.
--- NOTE | 2021-09-07 06:36 | PC.NURSE ---
DR WORTHY AT BEDSIDE.
--- NOTE | 2021-09-07 07:14 | P.PN_ITS ---
Subjective Patient reports: feels better Progress Note: A&P (1) Anemia Status: Acute Assessment and plan: Possibly due to peptic ulcer disease; however, possible area of prepyloric ulceration essentially healed on recent esophagogastroduodenoscopy. Further evaluation warranted (hopefully in the outpatient setting). Follow-up morning hemoglobin Continue proton pump inhibition (2) Iron deficiency Status: Acute (3) Microcytosis Status: Acute (4) Coagulopathy Status: Acute (5) Thrombocythemia Status: Acute (6) Gastritis Status: Acute Exam Vital signs and Labs for Last 24 Hours: Temp Pulse Resp BP Pulse Ox 98.2 F 71 19 116/52 L 100 09/07/21 04:00 09/07/21 04:00 09/07/21 04:00 09/07/21 04:00 09/07/21 04:00 Laboratory Results - last 24 hr 09/06/21 14:00: Urine Color Yellow, Urine Appearance Clear, Urine pH 5.5, Ur Specific [place] 1.025, Urine Protein Negative, Urine Glucose (UA) Negative, Urine Ketones Negative, Urine Blood Negative, Urine Nitrate Negative, Urine Bilirubin Negative, Urine Urobilinogen 0.2, Ur Leukocyte Esterase Negative, Urine RBC None, Urine WBC None, Ur Squamous Epith Cells Occasional, Calcium Oxalate Crystal 2+, Urine Bacteria Trace 09/06/21 15:35: Ammonia < 9 L 09/06/21 17:14: WBC 8.5, RBC 4.79, Hgb 9.0 L, Hct 31.3 L, MCV 65.3 L, MCH 18.8 L , MCHC 28.8 L, RDW 30.7 H*, Plt Count 461 H, MPV 7.9, Neut % (Auto) 56.1, Lymph % (Auto) 32.1, [place] % (Auto) 7.8, Eos % (Auto) 2.6, Baso % (Auto) 1.3, Neut # (Auto) 4.8, Lymph # (Auto) 2.7, [place] # (Auto) 0.7, Eos # (Auto) 0.2, Baso # (Auto) 0.1 I & O for Last 24 hours: Intake & Output 09/04/21 09/05/21 09/06/21 09/07/21 11:59 11:59 11:59 11:59 Intake Total 0 / 0 745 / 745 680 / 680 Output Total 100 / 100 Balance 0 / 0 745 / 745 580 / 580 Weight 164 lb 155 lb - Constitutional no acute distress - *Routine Respiratory Exam Absent: respiratory distress - *Routine Cardiovascular Exam Absent: tachycardia
[2021-09-07 07:45] LABS: Chloride 117 mmol/L (98-107)
[2021-09-07 07:46] LABS: Basophils # 0.1 K/mm3 (0-0.2); Basophils % 1.1 % (0.1-2.0); Eosinophils # 0.3 K/mm3 (0.0-0.4); Eosinophils % 3.9 % (0.1-12.0); Hematocrit 29.4 % (37.0-47.0); Hemoglobin 8.5 g/dL (12.2-16.2); Lymphocytes # 2.4 K/mm3 (0.7-4.5); Lymphocytes % 31.4 % (10-50); Mean Corpuscular HGB Conc 28.8 g/dL (31.8-35.4); Mean Corpuscular Hemoglobin 19.3 pg (27.0-31.2); Mean Corpuscular Volume 66.9 fl (81-99); Mean Platelet Volume 7.8 fl (7.4-10.4); Monocytes # 0.6 K/mm3 (0.1-1.0); Monocytes % 8.5 % (1.7-9.3); Neutrophils # 4.2 K/mm3 (1.8-7.8); Neutrophils % 55.2 % (37.0-80.0); Platelet Count 486 K/mm3 (142-424); Potassium 3.5 mmoL/L (3.5-5.1); Sodium 141 mmol/L (136-145); White Blood Count 7.6 K/mm3 (4.8-10.8)
[2021-09-07 07:48] LABS: Red Cell Distribution Width 31.2 % (11.5-17.5)
[2021-09-07 07:49] LABS: Anion Gap 7.5 mEq/L (5-15); Blood Urea Nitrogen 11 mg/dl (7-17); Calcium 8.6 mg/dl (8.4-10.2); Carbon Dioxide 20 mmol/L (22.0-30.0); Creatinine Clearance Estimated 59 mL/min (50-200); Estimated Glomerular Filt Rate 83 ml/min (>60); GFR (African American) 100 ML/MIN (>60); Glucose 91 mg/dl (74-100)
[2021-09-07 08:00] VITALS: BP 143/66; PULSE 64; RESP 18; TEMP 36.6; O2SAT 95; O2SAT 99
--- NOTE | 2021-09-07 08:12 | CT_ITS ---
FINAL REPORT TECHNIQUE: Axial CT images of the abdomen were obtained with oral contrast only. Coronal reformatted images were also obtained. This study was performed with techniques to keep radiation doses as low as reasonably achievable (ALARA). Individualized dose reduction techniques using automated exposure control or adjustment of mA and/or kV according to the patient''s size were employed. CLINICAL HISTORY: Anemia w/ Abd pain FINDINGS: The lung bases are clear. The liver has unremarkable appearance, without evidence of mass. The gallbladder appears normal without evidence of gallstones. There is no evidence of biliary ductal dilatation. The pancreas appears normal. The spleen size is within normal limits. There are several small bilateral nonobstructing renal stones. Largest stone on the left measures 5 mm. There is no evidence of adenopathy. No abnormal fluid collection is seen. No localized inflammatory processes identified. IMPRESSION: Bilateral nephrolithiasis. Reviewed, Interpreted and Dictated by Dameon Silveira III, MD Transcribed by Irene Shay Authenticated and [facility]
--- NOTE | 2021-09-07 12:45 | PC.NURSE ---
LILY Hermosillo called to notify staff of D/C order being put in on pt. Telephone orders given for a regular diet at this time.
--- NOTE | 2021-09-07 12:51 | HMH.ACPN2 ---
Internal Medicine - PN: Subj *Date: 09/07/21 *Time: 12:51 Interval history: 71-year-old female patient sitting up on side of bed respirations easy/even, she is more alert today is alert and oriented x3. Granddaughter is in room, discussed discharge home both are in agreement. Exam Vital signs and Labs for Last 24 Hours: Temp Pulse Resp BP Pulse Ox 97.9 F 64 18 143/66 H 95 09/07/21 08:00 09/07/21 08:00 09/07/21 08:00 09/07/21 08:00 09/07/21 08:00 Laboratory Results - last 24 hr 09/06/21 14:00: Urine Color Yellow, Urine Appearance Clear, Urine pH 5.5, Ur Specific [place] 1.025, Urine Protein Negative, Urine Glucose (UA) Negative, Urine Ketones Negative, Urine Blood Negative, Urine Nitrate Negative, Urine Bilirubin Negative, Urine Urobilinogen 0.2, Ur Leukocyte Esterase Negative, Urine RBC None, Urine WBC None, Ur Squamous Epith Cells Occasional, Calcium Oxalate Crystal 2+, Urine Bacteria Trace 09/06/21 15:35: Ammonia < 9 L 09/06/21 17:14: WBC 8.5, RBC 4.79, Hgb 9.0 L, Hct 31.3 L, MCV 65.3 L, MCH 18.8 L, MCHC 28.8 L, RDW 30.7 H*, Plt Count 461 H, MPV 7.9, Neut % (Auto) 56.1, Lymph % (Auto) 32.1, [place] % (Auto) 7.8, Eos % (Auto) 2.6, Baso % (Auto) 1.3, Neut # (Auto) 4.8, Lymph # (Auto) 2.7, [place] # (Auto) 0.7, Eos # (Auto) 0.2, Baso # (Auto) 0.1 09/07/21 07:28: WBC 7.6, RBC 4.40, Hgb 8.5 L, Hct 29.4 L, MCV 66.9 L, MCH 19.3 L, MCHC 28.8 L, RDW 31.2 H*, Plt Count 486 H, MPV 7.8, Neut % (Auto) 55.2, Lymph % (Auto) 31.4, [place] % (Auto) 8.5, Eos % (Auto) 3.9, Baso % (Auto) 1.1, Neut # (Auto) 4.2, Lymph # (Auto) 2.4, [place] # (Auto) 0.6, Eos # (Auto) 0.3, Baso # (Auto) 0.1 09/07/21 07:28: Sodium 141, Potassium 3.5, Chloride 117 H, Carbon Dioxide 20 L, Anion Gap 7.5, BUN 11, Creatinine 0.70, Estimated Creat Clear 59, Estimated GFR 83, Est GFR ( Amer) 100, Glucose 91, Calcium 8.6 I & O for Last 24 hours: Intake & Output 09/04/21 09/05/21 09/06/21 09/07/21 23:59 23:59 23:59 23:59 Intake Total 745 / 745 680 / 680 600 / 600 Output Total 100 / 100 Balance 745 / 745 580 / 580 600 / 600 Weight 164 lb 155 lb Microbiology Reports for the Last 24 Hours: Microbiology 09/05/21 09:15 Blood Blood Culture - Preliminary NO GROWTH AFTER 48 HOURS 09/05/21 09:15 Blood Blood Culture - Preliminary NO GROWTH AFTER 48 HOURS - Constitutional no acute distress - *Routine HEENT Exam Head: Present: normocephalic Eye: Present: EOMI ENT: Present: mucous membranes moist - *Routine Neck Exam Present: trachea midline. Absent: tracheal deviation - *Routine Respiratory Exam Present: CTA bilaterally. Absent: accessory muscle use - *Routine Cardiovascular Exam Present: RRR - *Routine Abdominal Exam Present: soft, normoactive bowel sounds. Absent: tenderness, firm - *Routine Extremities Exam Present: full ROM, pulses intact. Absent: cyanosis, clubbing, edema - *Routine Skin Exam Present: intact, dry. Absent: cyanosis, erythema - *Routine Neurological Exam Present: alert, oriented X3. Absent: motor deficit, altered mental status - Routine Psychiatric Exam Present: normal affect, normal thought process. Absent: visual hallucinations Assessment and Plan (1) Anemia Status: Acute Qualifiers: Anemia type: unspecified type Qualified Code(s): D64.9 - Anemia, unspecified Category: Medical Code(s): D64.9 - Anemia, unspecified (2) Iron deficiency Status: Acute Category: Medical Code(s): E61.1 - Iron deficiency (3) Microcytosis Status: Acute Category: Medical Code(s): R71.8 - Other abnormality of red blood cells (4) Coagulopathy Status: Acute Category: Medical Code(s): D68.9 - Coagulation defect, unspecified (5) Thrombocythemia Status: Acute Category: Medical Code(s): D75.839 - Thrombocytosis, unspecified (6) Gastritis Status: Acute Category: Medical Code(s): K29.70 - Gastritis, unspecified, witho
--- NOTE | 2021-09-08 14:57 | CARE MANAGER ---
Spoke with patient for follow-up phone interview, patient states that she is feeling alot better and has no issues at this time. I did remind the patient of her appointment with hematology in the am and she is aware.
== END 2021-09-07 14:05 | disposition home or self-care (01) | DRG 812 ==
LOC: ER 09:55 → 2ND 10:28 → OB 09-06 19:59
PROVIDERS: Nurse Practitioner Family; Surgery; Admitting Provider Family Medicine; Emergency Provider Emergency Medicine; Visit Provider Family Medicine
PROC: 0DJ08ZZ Inspection of Upper Intestinal Tract, Via Natural or Artificial Opening Endoscopic (ICD-10-PCS; CPT 43235; principal; 2021-09-06 07:00)
DX: D50.9 Iron deficiency anemia, unspecified (principal); I10 Essential (primary) hypertension; K29.70 Gastritis, unspecified, without bleeding; R79.1 Abnormal coagulation profile; Z87.891 Personal history of nicotine dependence
CPT/HCPCS: 43239; 36415; 70496; 70551; 71045; 74150; 80048; 80053; 81001; 82140; 82272; 82607; 82728; 82746; 82803; 83540; 83550; 83605; 83880; 84484; 85014; 85018; 85025; 85044; 85610; 85730; 86850; 87040; 88305; 93005; 97116; 97162; 97165; 97530; 99291; C9803; G0328; P9016; Q9967; U0003; U0005

== ENCOUNTER → 2021-09-09 14:37 | Outpatient (CLI) | payer MEDICARE, OTHER, SELFPAY ==
[2021-09-09 15:14] LABS: Basophils # 0.1 K/mm3 (0-0.2); Eosinophils # 0.2 K/mm3 (0.0-0.4); Eosinophils % 1.9 % (0.1-12.0); Hematocrit 31.8 % (37.0-47.0); Hemoglobin 9.2 g/dL (12.2-16.2); Lymphocytes % 20.8 % (10-50); Mean Corpuscular HGB Conc 28.8 g/dL (31.8-35.4); Mean Corpuscular Hemoglobin 19.4 pg (27.0-31.2); Mean Corpuscular Volume 67.4 fl (81-99); Mean Platelet Volume 7.8 fl (7.4-10.4); Monocytes # 0.6 K/mm3 (0.1-1.0); Monocytes % 6.5 % (1.7-9.3); Neutrophils # 6.6 K/mm3 (1.8-7.8); Neutrophils % 69.7 % (37.0-80.0); Platelet Count 503 K/mm3 (142-424); Red Blood Count 4.72 M/mm3 (4.20-5.40); White Blood Count 9.5 K/mm3 (4.8-10.8)
[2021-09-09 15:28] LABS: Red Cell Distribution Width 27.6 % (11.5-17.5)
== END ==
PROVIDERS: Internal Medicine Hematology & Oncology; PCP Family Medicine; Visit Provider Family Medicine
DX: D64.9 Anemia, unspecified (principal)
CPT/HCPCS: 36415; 85025

== ENCOUNTER → 2021-09-15 13:40 | Outpatient (CLI) | payer MEDICARE, OTHER, SELFPAY ==
[2021-09-15 14:30] LABS: Basophils # 0.1 K/mm3 (0-0.2); Eosinophils # 0.2 K/mm3 (0.0-0.4); Eosinophils % 2.9 % (0.1-12.0); Hemoglobin 9.6 g/dL (12.2-16.2); Lymphocytes # 1.6 K/mm3 (0.7-4.5); Lymphocytes % 18.4 % (10-50); Mean Corpuscular HGB Conc 28.3 g/dL (31.8-35.4); Mean Corpuscular Hemoglobin 19.5 pg (27.0-31.2); Mean Corpuscular Volume 68.8 fl (81-99); Mean Platelet Volume 7.5 fl (7.4-10.4); Monocytes # 0.6 K/mm3 (0.1-1.0); Monocytes % 6.5 % (1.7-9.3); Neutrophils % 71.2 % (37.0-80.0); Platelet Count 429 K/mm3 (142-424); Red Blood Count 4.93 M/mm3 (4.20-5.40); White Blood Count 8.5 K/mm3 (4.8-10.8)
[2021-09-15 15:00] LABS: Red Cell Distribution Width 28.1 % (11.5-17.5)
== END ==
PROVIDERS: PCP Family Medicine; Visit Provider Surgery
DX: D64.9 Anemia, unspecified (principal)
CPT/HCPCS: 36415; 85025

== ENCOUNTER 2021-10-13 12:35 | Emergency (ER) | payer MEDICARE, SELFPAY ==
[2021-10-13] VITALS (9 sets, daily range): BP systolic 136–167; BP diastolic 52–95; PULSE 78–98; RESP 16–18; TEMP 36.7; O2SAT 98–100; BMI 23.8
--- NOTE | 2021-10-13 12:50 | PC.NURSE ---
pt in triage room waiting on available ER room, have been out and evaluated pt and obtain VS. VSS, pt notified will room pt in ER as soon as room as soon as one is available. Pt verbalized understanding
[2021-10-13 13:30] LABS: Basophils # 0.1 K/mm3 (0-0.2); Basophils % 0.8 % (0.1-2.0); Eosinophils # 0.3 K/mm3 (0.0-0.4); Eosinophils % 2.7 % (0.1-12.0); Hematocrit 30.9 % (37.0-47.0); Hemoglobin 8.9 g/dL (12.2-16.2); Lymphocytes # 1.8 K/mm3 (0.7-4.5); Lymphocytes % 16.3 % (10-50); Mean Corpuscular HGB Conc 28.7 g/dL (31.8-35.4); Mean Corpuscular Volume 76.5 fl (81-99); Mean Platelet Volume 8.5 fl (7.4-10.4); Monocytes # 0.7 K/mm3 (0.1-1.0); Neutrophils # 8.3 K/mm3 (1.8-7.8); Neutrophils % 74.2 % (37.0-80.0); Platelet Count 653 K/mm3 (142-424); Red Blood Count 4.03 M/mm3 (4.20-5.40); White Blood Count 11.2 K/mm3 (4.8-10.8)
[2021-10-13 13:44] LABS: Alanine Aminotransferase 12 U/L (12-78); Albumin Level 3.7 g/dl (3.5-5.0); Albumin/Globulin Ratio 1.1 (1.1-1.8); Alkaline Phosphatase 113 U/L (38-126); Anion Gap 11.3 mEq/L (5-15); Aspartate Amino Transferase 34 U/L (14-36); Blood Urea Nitrogen 14 mg/dl (7-17); Calcium 8.9 mg/dl (8.4-10.2); Carbon Dioxide 21 mmol/L (22.0-30.0); Chloride 115 mmol/L (98-107); Creatinine Clearance Estimated 58 mL/min (50-200); Estimated Glomerular Filt Rate 83 ml/min (>60); GFR (African American) 100 ML/MIN (>60); Globulin 3.5 g/dL (1.3-3.2); Glucose 111 mg/dl (74-100); Potassium 4.3 mmoL/L (3.5-5.1); Sodium 143 mmol/L (136-145); Total Protein,Serum 7.2 g/dl (6.3-8.2)
[2021-10-13 13:45] LABS: Bilirubin,Total 0.1 mg/dl (0.2-1.3)
[2021-10-13 13:46] LABS: Red Cell Distribution Width 27.8 % (11.5-17.5)
--- NOTE | 2021-10-13 13:53 | HMH.EDGENADL ---
ED Disposition Clinical Impression: Iron deficiency anemia Qualifiers: Iron deficiency anemia type: unspecified iron deficiency Qualified Code(s): D50.9 - Iron deficiency anemia, unspecified Disposition: Home, Self-Care Condition on Discharge: Good Additional Instructions: Recommend following up with your PCP tomorrow for recommendations on your iron supplementation. Referrals: Grant Raymundo MD [Primary Care Provider] - - Critical Care Critical Care Time: No Attestation: On 10/13/21, the high probability of a clinically significant, sudden or life threatening deterioration of the following system(s) required my full and direct attention, intervention and personal management. The time I documented below is in addition to time spent performing reported procedures but includes the following listed in this critical care notation. Medical Decision Making - Alex Inquiry Pt receiving controlled substance: No Alex was queried for this patient: No Vital Signs: 10/13/21 12:42 10/13/21 13:30 10/13/21 13:45 Temperature 98.1 F Temperature Source Oral Pulse Rate 84 80 Pulse Rate [Left Radial] 98 H Respiratory Rate 16 18 Blood Pressure 140/63 Blood Pressure [Left Arm] 167/95 H Blood Pressure Mean 88 Blood Pressure Mean [Left Arm] 119 Blood Pressure Source [Left Arm] Automatic Cuff Blood Pressure Position [Left Arm] Sitting 02 Sat by Pulse Oximetry 100 100 100 Oxygen Delivery Method Room Air Room Air 10/13/21 14:00 10/13/21 14:30 10/13/21 15:00 Temperature Temperature Source Pulse Rate 83 81 89 Pulse Rate [Left Radial] Respiratory Rate 16 18 16 Blood Pressure 146/66 H 140/56 L 153/62 H Blood Pressure [Left Arm] Blood Pressure Mean 93 84 86 Blood Pressure Mean [Left Arm] Blood Pressure Source [Left Arm] Blood Pressure Position [Left Arm] 02 Sat by Pulse Oximetry 100 100 100 Oxygen Delivery Method 10/13/21 15:30 10/13/21 16:00 10/13/21 16:16 Temperature 98.1 F Temperature Source Pulse Rate 78 81 81 Pulse Rate [Left Radial] Respiratory Rate 16 16 Blood Pressure 136/52 L 139/57 L 139/57 L Blood Pressure [Left Arm] Blood Pressure Mean 80 87 Blood Pressure Mean [Left Arm] Blood Pressure Source [Left Arm] Blood Pressure Position [Left Arm] 02 Sat by Pulse Oximetry 98 99 Oxygen Delivery Method Room Air - Lab Data Lab Results 10/13/21 13:25: WBC 11.2 H, RBC 4.03 L, Hgb 8.9 L, Hct 30.9 L, MCV 76.5 L, MCH 22.0 L, MCHC 28.7 L, RDW 27.8 H*, Plt Count 653 H, MPV 8.5, Neut % (Auto) 74.2, Lymph % (Auto) 16.3, [place] % (Auto) 6.0, Eos % (Auto) 2.7, Baso % (Auto) 0.8, Neut # (Auto) 8.3 H, Lymph # (Auto) 1.8, [place] # (Auto) 0.7, Eos # (Auto) 0.3, Baso # (Auto) 0.1 10/13/21 13:25: Sodium 143, Potassium 4.3, Chloride 115 H, Carbon Dioxide 21 L, Anion Gap 11.3, BUN 14, Creatinine 0.70, Estimated Creat Clear 58, Estimated GFR 83, Est GFR ( Amer) 100, Glucose 111 H, Calcium 8.9, Total Bilirubin 0.1 L, AST 34, ALT 12, Alkaline Phosphatase 113, Total Protein 7.2, Albumin 3.7, Globulin 3.5 H, Albumin/Globulin Ratio 1.1 10/13/21 15:04: SARS-CoV-2 (PCR) Not detected, Influenza A Untype (PCR) Not detected, Influenza Type B (PCR) Not detected Result diagrams: 10/13/21 13:25 10/13/21 13:25 Orders (Tests/Meds): ED MEDICATIONS Discontinued Medications Generic Name Dose Route Start Last Admin Trade Name Moisesq PRN Reason Stop Dose Admin Sodium Chloride 10 ml 10/13/21 13:19 Sodium Chloride 0.9% 10ml Flush Syringe IV 11/12/21 13:18 NEEDED PRN Maintain IV Site Medical Decision Narrative: In review this is a 71-year-old female who presents with shortness of breath. Hemodynamically stable and nontoxic-appearing. She is currently 100% on the monitor and not struggling to breathe and overall appears comfortable. I reviewed her chart which did show that she had substantial anemia previously and required 3 units of blood. Her
--- NOTE | 2021-10-13 14:01 | XR_ITS ---
FINAL REPORT CLINICAL HISTORY: soa x 1 week COMPARISON: 09/05/2021 FINDINGS: Two views of the chest were obtained. The heart size and pulmonary vascularity are within normal limits. The mediastinum is normal. No acute pulmonary abnormality is identified. There is no pneumothorax. The bony thorax is intact. There is postoperative change in the left shoulder. IMPRESSION: No active cardiopulmonary disease. Reviewed, Interpreted and Dictated by Dameon Silveira III, MD Transcribed by Irene Shay Authenticated and [facility]
--- NOTE | 2021-10-13 14:27 | PC.NURSE ---
rounded on pt at this time, pt requesting Ice chips-okayed per GONZALO BARONE pt states no other needs at this time, updated her that GONZALO BARONE is reviewing her tests at this time. Family at , will continue to monitor.
[2021-10-13 15:13] LABS: Coronavirus 19, PCR Not Detected (NotDetected); Influenza A, PCR Not Detected (NotDetected); Influenza B, PCR Not Detected (NotDetected)
--- NOTE | 2021-10-13 15:46 | PC.NURSE ---
rounded pt, no needs at this time.
--- NOTE | 2021-10-13 16:00 | PC.NURSE ---
lab states that covid results will be in approx 10 minutes
== END 2021-10-13 16:18 | disposition home or self-care (01) ==
PROVIDERS: Emergency Provider Student in an Organized Health Care Education/Training Program; PCP Family Medicine
DX: D50.9 Iron deficiency anemia, unspecified (principal); I10 Essential (primary) hypertension; Z87.891 Personal history of nicotine dependence
CPT/HCPCS: 71046; 80053; 85025; 99283; C9803; U0003; U0005

== ENCOUNTER 2021-11-23 08:24 | Day surgery (SDC) | payer MEDICARE, SELFPAY ==
[2021-11-18 12:52] VITALS: BMI 24.0
[2021-11-23 08:49] VITALS: BP 146/59; PULSE 87; RESP 18; TEMP 37.1; O2SAT 99
--- NOTE | 2021-11-23 09:08 | P.PN_ITS ---
[facility] Medical History Chronic cough History of anemia History of COVID-19 History of hemorrhoids Hypertension Surgical History (Updated 11/23/21 @ 08:47 by Bhargavi Silvestre, RN) History of arthroscopy of shoulder History of hysterectomy Surgical history of tubal ligation Family History Other Family history of cancer Family history of hypertension Social History Smoking Status: Former smoker alcohol intake: never substance use type: denies use current occupational status: retired Travel in the last 8 weeks: None household members: spouse caffeine: Yes [facility] Anesthesia Checklist Patient Identification Patient Identification: Verbal (Name & ) Structural Data Admitted From: Home Planned Operative Procedure/s: egd,colonoscopy Consent for Planned Operative Procedure(s) Verified: Yes NPO Status Verified Time NPO: 00:00 Additional verifications Anesthesia Reactions: No Previous Colonoscopy: Yes Airway Assessment C-Spine Mobility Assessed: Yes TMJ Mobility Assessed: Yes Dentition: Poor Dentition Neurological Assessment Level of Consciousness: Awake, Alert and Appropriate Anesthesia Plan Anesthesia Risk discussed: Yes Anesthesia Plan: Verified ASA Class: II Anesthesia Type: MAC
[2021-11-23 09:31] VITALS: O2SAT 97
--- NOTE | 2021-11-23 09:57 | HMH.SCOPE ---
Procedure: Date: 11/23/21 Patient Date of :: 1950 Procedure Performed:: Esophagogastroduodenoscopy with biopsy Flexible proctoscopy with biopsy Indications:: Anemia Performing Provider:: Delta Velasco MD Referring Provider:: Dr. Raymundo Sedation:: Monitored anesthesia care Procedure:: After informed consent was obtained the patient was taken to the endoscopy suite. Sedation ensued after the patient was transferred to the left lateral decubitus position. Pulse, blood pressure, and oxygen saturation were monitored throughout the procedure. The endoscope was advanced beyond the duodenal bulb. Retroflexion within the gastric lumen was accomplished. The gastroscope was carefully removed. Digital rectal exam revealed a palpable abnormality consistent with mass lesion. Stool also palpable. The colonoscope was placed in position. A friable circumferential mass starting at 10 cm was immediately visible. Multiple biopsies were obtained. Secondary to the mass lesion, as well as stool, further advancement was deemed unsafe and unwarranted. The colonoscope was carefully removed and the patient was transferred to recovery in stable condition. Please see findings and specimens below for detail. Findings:: Mild to moderate gastritis distally Circumferential hemorrhoids Bowel preparation for Circumferential friable anorectal mass (distal edge measured at 10 cm) Specimens:: Antral biopsy Multiple biopsies of circumferential anorectal mass with distal margin starting at 10 cm Recommendations:: Follow-up pathology Referral to colorectal surgeon for further evaluation management Continue proton pump inhibition Complications:: No immediate with the exception of poor bowel preparation. Estimated blood obtained (mL): 1
[2021-11-23 09:59] VITALS: BP 105/55; PULSE 75; RESP 18; TEMP 36.2; O2SAT 95
[2021-11-23 10:09] VITALS: BP 106/50; PULSE 68; RESP 18; O2SAT 96
[2021-11-23 10:19] VITALS: BP 124/61; PULSE 68; RESP 18; O2SAT 98
[2021-11-23 10:20] VITALS: BP 119/56; PULSE 67; RESP 18; O2SAT 98
== END 2021-11-23 10:21 | disposition home or self-care (01) ==
PROVIDERS: PCP Family Medicine; Visit Provider Surgery
PROC: 0DJ08ZZ Inspection of Upper Intestinal Tract, Via Natural or Artificial Opening Endoscopic (ICD-10-PCS; CPT 43235; principal; 2021-11-23 09:30)
DX: D64.9 Anemia, unspecified (principal); K64.9 Unspecified hemorrhoids; Z79.899 Other long term (current) drug therapy; C21.8 Malignant neoplasm of overlapping sites of rectum, anus and anal canal
CPT/HCPCS: 43239; 45331; 88305; 88342

== ENCOUNTER → 2021-11-25 11:21 | Outpatient (CLI) | payer MEDICARE, SELFPAY ==
[2021-11-25 12:00] LABS: Basophils # 0.1 K/mm3 (0-0.2); Basophils % 1.2 % (0.1-2.0); Eosinophils # 0.2 K/mm3 (0.0-0.4); Eosinophils % 2.5 % (0.1-12.0); Hematocrit 30.1 % (37.0-47.0); Hemoglobin 8.7 g/dL (12.2-16.2); Lymphocytes % 21.6 % (10-50); Mean Corpuscular HGB Conc 29.1 g/dL (31.8-35.4); Mean Corpuscular Hemoglobin 21.6 pg (27.0-31.2); Mean Corpuscular Volume 74.4 fl (81-99); Monocytes # 0.5 K/mm3 (0.1-1.0); Monocytes % 5.9 % (1.7-9.3); Neutrophils # 6.3 K/mm3 (1.8-7.8); Neutrophils % 68.8 % (37.0-80.0); Platelet Count 719 K/mm3 (142-424); Red Blood Count 4.04 M/mm3 (4.20-5.40); Red Cell Distribution Width 20.2 % (11.5-17.5); White Blood Count 9.2 K/mm3 (4.8-10.8)
[2021-11-25 12:48] LABS: Iron 23 ug/dL (37-170)
[2021-11-25 12:58] LABS: Total Iron Binding Capacity 318 ug/dL (265-497)
[2021-11-25 13:25] LABS: Ferritin 6.83 ng/ml (11.1-264)
== END ==
PROVIDERS: PCP Family Medicine; Visit Provider Internal Medicine Medical Oncology
DX: D50.8 Other iron deficiency anemias (principal)
CPT/HCPCS: 36415; 82728; 83540; 83550; 85025

== ENCOUNTER → 2021-12-24 13:37 | Outpatient (CLI) | payer MEDICARE, SELFPAY ==
--- NOTE | 2021-12-24 13:45 | MM_ITS ---
PROCEDURE INFORMATION: Exam: US Left Breast, Complete US Right Breast, Complete MG Bilateral Diagnostic Breast Tomosynthesis Exam date and time: 12/24/2021 2:15 PM Age: 71 years old Clinical indication: Concern for right breast pain and lump - as well as recent CT scan showing concern for bilateral breast masses (as per technologist note). Personal hisotyr of colon cancer. TECHNIQUE: Imaging protocol: Complete ultrasound of all four quadrants of the Left breast and the retroareolar regions, including ultrasound of the axilla when performed. Complete ultrasound of all four quadrants of the Right breast and the retroareolar regions, including ultrasound of the axilla when performed. Bilateral Diagnostic tomosynthesis and 2D mammography including computer-aided detection (CAD) when performed. Unilateral or bilateral exam. Triangular marker placed at palpable concern on the right. COMPARISON: No relevant prior studies available. If the prior CT scan and or report is provided, I am happy to an addendum. FINDINGS: MAMMOGRAPHY: Breast composition: There are scattered areas of fibroglandular density. Mass: Palpable concern corresponds to a 3.3 cm lobulated dense mass in the right upper outer quadrant middle to posterior 3rd. There is suggestion of overlying skin dimpling or deformity. No left breast mass. Possible 0.5 cm oval mass/asymmetry in the inner right breast, middle 3rd, CC projection frame 15. Architectural distortion: None. Calcifications: No suspicious calcifications. Asymmetric density: None. Skin thickening: None. Axillary adenopathy: None. ULTRASOUND: Right sonography, all 4 quadrants, retroareolar and axilla. Corresponding to the palpable concern and mammographic mass, at 10 o'clock 7 cm from the nipple, lobulated solid mass, with heterogeneous cystic component centrally and hyperemia, measuring 3.8 x 2.3 by 3.5 cm. Oval hypoechoic mass, at 8 o'clock 2 cm from the nipple measuring 0.3 x 0.3 x 0.3 cm. Right axillary lymph node, deep location, no fatty hilum demonstrated. Left sonography, all 4 quadrants, retroareolar and axilla demonstrate at 9 o'clock 3 cm from the nipple, a mildly lobulated hypoechoic solid mass measuring 0.6 x 0.3 by 0.6 cm - with suggestion of the fatty hilum. Sonographically unremarkable left axillary lymph node. IMPRESSION: Highly suspicious 3.8 cm solid lobulated mass corresponds to the painful mammographic lump in the right breast at 10 o'clock, ultrasound-guided biopsy is recommended with correlation to ensure that the sonographically placed clip of matches the mammographic finding. Suggest ultrasound-guided biopsy of the 0.3 cm hypoechoic mass on the right at 8 o'clock and on the left at 9 o'clock. Correlate to ensure that the mammographic findings correspond to the CT concerns, and if prior CT scans and reports are provided, I am happy to an addendum. ASSESSMENT: BI-RADS Category 5: Highly suggestive of malignancy
== END ==
PROVIDERS: PCP Family Medicine; Visit Provider Internal Medicine Medical Oncology
DX: R92.8 Other abnormal and inconclusive findings on diagnostic imaging of breast (principal); C18.9 Malignant neoplasm of colon, unspecified
CPT/HCPCS: 76641; 77062; 77066; G0279

== ENCOUNTER → 2021-12-30 08:46 | Outpatient (CLI) | payer MEDICARE, SELFPAY ==
[2021-12-30 08:55] LABS: Microscopic, Urine URINE MICROSCOPIC (MICROSCOPIC)
--- NOTE | 2021-12-30 09:15 | US_ITS ---
FINAL REPORT CLINICAL HISTORY: RT BREAST NOD 1000- , right breast mass upper outer quadrant FINDINGS: ULTRASOUND-GUIDED RIGHT BREAST CORE BIOPSY TECHNIQUE: Limited images were obtained to localize region of interest. The right breast was prepped in a routine sterile fashion and locally anesthetized with 1% lidocaine. Standard written informed consent was obtained. The biopsy needle was positioned within the outer periphery of the lesion. A total of 3 passes were made with a 18 gauge core biopsy needle. A biopsy marker clip was deployed in satisfactory position. Postbiopsy mammogram showed postbiopsy changes with clip in satisfactory position. Procedure was well tolerated . CONCLUSION: 1. Technically successful ultrasound guided core biopsy of right breast lesion as above. 2. Biopsy marker clip deployed Histopathology reveals findings of breast carcinoma. Appropriate referral for treatment is recommended. Authenticated and ERN
[2021-12-30 09:43] LABS: Basophils # 0.1 K/mm3 (0-0.2); Basophils % 1.1 % (0.1-2.0); Eosinophils # 0.3 K/mm3 (0.0-0.4); Eosinophils % 2.7 % (0.1-12.0); Hematocrit 29.6 % (37.0-47.0); Lymphocytes # 1.9 K/mm3 (0.7-4.5); Lymphocytes % 16.2 % (10-50); Mean Corpuscular HGB Conc 30.3 g/dL (31.8-35.4); Mean Corpuscular Hemoglobin 21.6 pg (27.0-31.2); Mean Corpuscular Volume 71.5 fl (81-99); Mean Platelet Volume 7.7 fl (7.4-10.4); Monocytes # 0.6 K/mm3 (0.1-1.0); Monocytes % 5.3 % (1.7-9.3); Neutrophils # 8.8 K/mm3 (1.8-7.8); Neutrophils % 74.7 % (37.0-80.0); Platelet Count 662 K/mm3 (142-424); Red Blood Count 4.14 M/mm3 (4.20-5.40); Red Cell Distribution Width 18.5 % (11.5-17.5); White Blood Count 11.7 K/mm3 (4.8-10.8)
[2021-12-30 09:59] LABS: Appearance,Urine SL CLOUDY (Clear); Bilirubin,Urine Negative (Negative); Blood, Urine Negative (Negative); Color,Urine YELLOW (Yellow); Glucose,Urine (UA) Negative (Negative); Ketones,Urine Negative (Negative); Leukocyte Esterase,Urine Negative (Negative); Nitrate,Urine Negative (Negative); PH,Urine 5.5 (5.0-8.5); Protein,Urine Negative (Negative); Specific Gravity, Urine >= 1.030 (1.005-1.030); Urobilinogen,Urine 0.2 EU/dl (0.2)
--- NOTE | 2021-12-30 10:08 | MM_ITS ---
FINAL REPORT CLINICAL HISTORY: S/P RT BREAST BX, CLIP PLACEMENT, mass right upper outer quadrant FINDINGS: MAMMOGRAM RIGHT TECHNIQUE: Standard digital 2-D views COMPARISON: None DENSITY: There are scattered areas of fibroglandular density FINDINGS: Post biopsy marker clip is noted to be in satisfactory position. Postbiopsy changes are noted. Mass is again noted in the right upper outer quadrant with the marker clip in the periphery of the mass. IMPRESSION: Biopsy marker clip in good position RECOMMENDATION: Given findings of carcinoma, appropriate medical and surgical oncologic referral is recommended for treatment Authenticated and ERN
[2021-12-30 10:43] LABS: Chloride 108 mmol/L (98-107); Potassium 3.8 mmoL/L (3.5-5.1); Sodium 140 mmol/L (136-145)
[2021-12-30 10:46] LABS: Anion Gap 17.8 mEq/L (5-15); Blood Urea Nitrogen 21 mg/dl (7-17); Carbon Dioxide 18 mmol/L (22.0-30.0); Estimated Glomerular Filt Rate 71 ml/min (>60); GFR (African American) 86 ML/MIN (>60)
[2021-12-30 10:47] LABS: Calcium 8.5 mg/dl (8.4-10.2); Glucose 78 mg/dl (74-100)
[2021-12-30 10:59] LABS: Bacteria,Urine Trace /lpf; Squamous Epithelial Cell,Urine Occasional #/hpf (0-5); Uric Acid Crystals,Urine Trace /lpf; WBC,Urine Occasional #/hpf (0-3)
== END ==
PROVIDERS: PCP Family Medicine; Visit Provider Surgery
DX: C20 Malignant neoplasm of rectum (principal); R92.8 Other abnormal and inconclusive findings on diagnostic imaging of breast
CPT/HCPCS: 19083; 36415; 77065; 80048; 81001; 85025; 88305; 88342; 88360

== ENCOUNTER 2022-01-06 06:42 | Day surgery (SDC) | payer MEDICARE, SELFPAY ==
[2022-01-04 13:44] VITALS: BMI 24.2
[2022-01-06] VITALS (9 sets, daily range): BP systolic 140–155; BP diastolic 62–84; PULSE 72–83; RESP 16–18; TEMP 36.1–36.8; O2SAT 94–100
--- NOTE | 2022-01-06 08:00 | P.PN_ITS ---
[facility] Medical History Chronic cough History of anemia History of COVID-19 History of hemorrhoids Hypertension Lung nodule Multiple lung nodules on CT Surgical History History of arthroscopy of shoulder History of colonoscopy History of hysterectomy Surgical history of tubal ligation Family History Other Family history of cancer Family history of hypertension Social History (Updated 01/06/22 @ 07:17 by Carlita Friedman, JOAN) Smoking Status: Former smoker alcohol intake: never substance use type: denies use current occupational status: retired Travel in the last 8 weeks: None household members: spouse caffeine: Yes [facility] Anesthesia Checklist Patient Identification Patient Identification: Arm Band Structural Data Admitted From: Home Planned Operative Procedure/s: Port-a-cath placement Consent for Planned Operative Procedure(s) Verified: Yes Verified Documents: Surgical Consent and History and Physical NPO Status Verified Time NPO: 00:00 Additional verifications Anesthesia Reactions: No Hx Blood Transfusions: Yes Blood Transfusion Reaction: No Airway Assessment C-Spine Mobility Assessed: Yes TMJ Mobility Assessed: Yes Dentition: Good Dentition Neurological Assessment Level of Consciousness: Awake and Alert Anesthesia Plan Anesthesia Risk discussed: Yes Anesthesia Plan: Verified ASA Class: III Anesthesia Type: General
--- NOTE | 2022-01-06 08:32 | XR_ITS ---
FINAL REPORT CLINICAL HISTORY: PORT A CATH PLACEMENT FT: 1:02 FINDINGS: Fluoroscopic guidance was provided for the operating services. Two spot films for provided. 1 minute 2 seconds of fluoroscopy time was utilized. IMPRESSION: 1 minute 2 seconds of fluoroscopy time. Reviewed, Interpreted and Dictated by Dameon Silveira III, MD Transcribed by Drake Chpora Authenticated and [facility]
--- NOTE | 2022-01-06 08:43 | XR_ITS ---
FINAL REPORT CLINICAL HISTORY: s/p port COMPARISON: October 2021 FINDINGS: There is a new left subclavian chest port with tip terminating in the lower SVC. The heart size is normal. The mediastinum is within normal limits. There is no acute cardiopulmonary process. There is no pleural effusion. There is no pneumothorax. There is postoperative change in the region of the left glenoid. IMPRESSION: Left chest port tip terminates in the lower SVC. No pneumothorax. Reviewed, Interpreted and Dictated by Dameon Silveira III, MD Transcribed by Drake Chopra Authenticated and [facility]
--- NOTE | 2022-01-06 08:47 | EXP.OP.NOTE ---
Date of procedure: 01/06/22 Pre-op Diagnosis:: Anorectal adenocarcinoma Post-op Diagnosis:: Same Procedure performed:: Port-A-Cath placement (left subclavian vein access) Surgeon:: Delta Velasco MD [employer] OPERATOR CABLE TOOL:: Crispin Posadas Anesthesia: local and LMA Estimated blood loss (mL): 10 Operative findings:: Port flushed with 10 mL of heparinized saline Operative note:: After informed consent was obtained the patient was taken to the operating room and placed in supine position. General anesthesia with laryngeal mask airway was achieved. Her left neck and chest were prepped and draped in a sterile fashion. After infiltration local anesthetic a large bore needle was utilized to access the left subclavian vein. A guidewire was placed in position and confirmed fluoroscopically. A transverse incision was made at the guidewire exit site. The deep subcutaneous tissue was dissected in order to form a pocket for the port hub with a combination of electrocautery, sharp dissection, and blunt dissection. Utilizing a modified Seldinger technique, the port catheter was secured in position and the tip was confirmed fluoroscopically. The catheter was secured to the port hub and the hub was then secured to the underlying fascia with interrupted Prolene. The deep subcutaneous tissue was reapproximated with interrupted Vicryl and skin was closed with 4-0 Monocryl. Dressings were applied after the port was flushed with 10 mL of heparinized saline. She was transferred to recovery in stable condition. Condition: stable Disposition: PACU Specimens:: None Complications:: No immediate
--- NOTE | 2022-01-06 08:52 | EXP.ANES.I ---
[facility] Anesthesia Record Part I Anesthesia Record I Intake, IV Amount: 600 Estimated blood loss (mL): 5 Urine output (mL): 0 Blood Products used (#): none Blood Pressure: 148/67 SaO2: 98 Pulse Rate: 76 Respiratory Rate: 16 Temperature: 97 F Patient is:: Drowsy and Stable Stable to PACU at:: 08:45
--- NOTE | 2022-01-06 09:07 | PC.NURSE ---
0854-radiology at bedside 0901-pt drinking ice water w/out difficulty, denies nausea
--- NOTE | 2022-01-06 09:14 | PC.NURSE ---
0912-detailed report called to JOAN Hitchcock
--- NOTE | 2022-01-06 09:15 | SUR.PHASEI ---
0915-pt transported to post op via stretcher w/demetrius rails up and left in care of JOAN Hitchcock with bed locked in lowest position, vss, pt stable
--- NOTE | 2022-01-06 13:04 | P.PNANES_ITS ---
[facility] Anesthesia Record Part II Anesthesia Record Part II Discharge Time: 09:15 Destination: Surgical Day Care (OP Surgery) PACU nurse assessment reviewed?: Yes Patient Condition:: Good Anesthesia Complications:: None Swallowing reflex intact?: Yes Cyanosis?: No Blood Pressure: 155/75 Pulse Rate: 75 Temperature: 97.6 F Mental Status: Alert & Oriented Pain level:: 0 Nausea and/or vomitting:: None Intake, IV Amount: 0
== END 2022-01-06 09:50 | disposition home or self-care (01) ==
PROVIDERS: PCP Family Medicine; Visit Provider Surgery
DX: C21.8 Malignant neoplasm of overlapping sites of rectum, anus and anal canal (principal); N63.10 Unspecified lump in the right breast, unspecified quadrant; Z79.899 Other long term (current) drug therapy; Z45.2 Encounter for adjustment and management of vascular access device
CPT/HCPCS: 36561; 77001; 71045; 96374; C1788; J1642; J2405